=== PATIENT | male | born 1985 | race Caucasian/White ===

== ENCOUNTER 2017-11-06 09:58 | Emergency (ER) | payer OTHER, MEDICAID ==
[2017-11-06] MEDS: MUPIROCIN 2% 22 GM OINT TOP (11:25)
[2017-11-06] MEDS: DIPHENHYDRAMINE 50 MG CAP PO (11:25)
[2017-11-06] MEDS: CEPHALEXIN 500 MG CAP PO (11:25)
== END 2017-11-06 11:54 | disposition home or self-care (01) ==
LOC: E/R 09:58
DX: S20.469A Insect bite (nonvenomous) of unspecified back wall of thorax, initial encounter (principal); S40.862A Insect bite (nonvenomous) of left upper arm, initial encounter; S40.861A Insect bite (nonvenomous) of right upper arm, initial encounter; S80.862A Insect bite (nonvenomous), left lower leg, initial encounter; S80.861A Insect bite (nonvenomous), right lower leg, initial encounter; R40.2142 Coma scale, eyes open, spontaneous, at arrival to emergency department; R40.2362 Coma scale, best motor response, obeys commands, at arrival to emergency department; R40.2252 Coma scale, best verbal response, oriented, at arrival to emergency department; F17.210 Nicotine dependence, cigarettes, uncomplicated; W57.XXXA Bitten or stung by nonvenomous insect and other nonvenomous arthropods, initial encounter; Y92.89 Other specified places as the place of occurrence of the external cause
CPT/HCPCS: 99284; Z7502